=== PATIENT | female | born 1980 | race Two or more races ===

== ENCOUNTER 2023-09-19 08:23 | Emergency (ER) | payer OTHER ==
[~2023-09-19] VITALS: Ht 160 cm; Wt 91.2 kg
[2023-09-19] MEDS ORDERED: VERAPAMIL ER120 MG PO (08:35)
[2023-09-19] MEDS ORDERED: KETOROLAC TROMETHAMINE 30 MG VIAL IM STA (09:40)
[2023-09-19 10:58] LABS: PH,URINE 5.5 (5.0-8.0); URINE APPEARANCE Clear; URINE BILIRRUBIN Negative (NEGATIVE); URINE BLOOD Negative; URINE COLOR Yellow; URINE GLUCOSE Negative (NEGATIVE); URINE LEUKOCYTE Negative; URINE NITRATE Negative; URINE PROTEIN Negative (NEGATIVE); URINE UROBILINOGEN 0.2 E.U./dl
[2023-09-19 11:03] LABS: URINE BACTERIA 299.8 uL (0.0-1933); URINE EPITHELIAL CELLS 23.7 uL (0.0-38.8); URINE RBC 12.7 uL (0.0-20.8); URINE WBC 2.1 uL (0.0-23.2)
== END 2023-09-19 13:19 | disposition home or self-care (01) ==
LOC: ER 08:24
PROVIDERS: Emergency Medicine
DX: M54.50 Low back pain, unspecified (principal); Z88.0 Allergy status to penicillin